=== PATIENT | female | born 1990 | race Two or more races ===

== ENCOUNTER → 2018-05-05 | Outpatient (CLI) | payer OTHER | LOC: OD 15:01 | PROVIDERS: ATTEND Family Medicine | DX: Z32.01 Encounter for pregnancy test, result positive (principal) | CPT/HCPCS: 36415; 84703 ==

== ENCOUNTER → 2018-11-29 | Outpatient (CLI) | payer OTHER | LOC: OD 16:49 | PROVIDERS: ATTEND Obstetrics & Gynecology | DX: Z11.3 Encounter for screening for infections with a predominantly sexual mode of transmission (principal) | CPT/HCPCS: 36415 ==

== ENCOUNTER 2018-12-28 13:20 | Outpatient (CLI) | payer OTHER ==
--- NOTE | 2018-12-28 14:20 | Non Stress Test Report ---
Non Stress Test Datetime Report Generated by CPN: 12/28/2018 14:19 DEMOGRAPHIC EGA NST: 40.3 INDICATION Indication for Study: Ordered by Provider MONITORING Monitor Explained: Monitor Explained; Test Explained; Patient Verbalized Understanding Time on Monitor: 12/28/2018 13:50 Time off Monitor: 12/28/2018 14:12 NST Duration: 22 NST INTERVENTIONS NST Interventions: None Physician Notified NST: J. Shields, CNM BABY A: [id number] BABY A Movement : Present Contraction Frequency : irregular FHR Baseline : 135 Accelerations : 15X15 Decelerations : None Variability : Moderate 6-25bpm NST Review: Meets Criteria for Reactive NST NST Review and Verified By : PAPA NARVAEZ RN NST Results: Reactive NST REPORT Report Trigger: Send Report
== END 2018-12-28 14:20 | disposition home or self-care (01) ==
LOC: LC 13:20
PROVIDERS: ATTEND Obstetrics & Gynecology
DX: O36.8330 Maternal care for abnormalities of the fetal heart rate or rhythm, third trimester, not applicable or unspecified (principal); Z3A.40 40 weeks gestation of pregnancy
CPT/HCPCS: 59025

== ENCOUNTER 2018-12-31 12:19 | Outpatient (CLI) | payer OTHER | END 2018-12-31 13:14 | disposition home or self-care (01) | LOC: LC 12:19 | PROVIDERS: ATTEND Student in an Organized Health Care Education/Training Program | PROC: 4A1HXCZ Monitoring of Products of Conception, Cardiac Rate, External Approach (ICD-10-PCS; principal; 2018-12-31) | DX: O48.0 Post-term pregnancy (principal); Z3A.40 40 weeks gestation of pregnancy | CPT/HCPCS: 59025 ==

== ENCOUNTER 2019-01-16 10:10 | Emergency (ER) | payer OTHER ==
[2019-01-16 10:14] VITALS: BP 93/62
--- NOTE | 2019-01-16 10:39 | ER Document Report ---
HPI - HPI Patient complains to provider of: breast pain Time Seen by Provider: 01/16/19 10:36 Onset: Other - 2 days Onset/Duration: Persistent Quality of pain: Achy Pain Level: 2 Context: Patient presents complaining of bilateral breast pain. Patient is 2 weeks and has been breast-feeding since delivery. Patient denies any fever. Patient is concerned she may have a blocked duct in the breast. Associated Symptoms: Other - nipple pain. denies: Fever, Nausea, Vomiting Exacerbated by: Movement Relieved by: Denies Similar symptoms previously: No Recently seen / treated by doctor: No - ROS ROS below otherwise negative: Yes Systems Reviewed and Negative: Yes All other systems reviewed and negative - CONSTITUTIONAL Constitutional: DENIES: Fever, Chills - NEURO Neurology: DENIES: Headache - GASTROINTESTINAL Gastrointestinal: DENIES: Abdominal Pain, Nausea, Patient vomiting - DERM Skin Color: Normal Skin Problems: None Past Medical History - General Information source: Patient - Social History Smoking Status: Never Smoker Frequency of alcohol use: None Drug Abuse: None Occupation: none Lives with: Family Family History: Reviewed & Not Pertinent Patient has suicidal ideation: No Patient has homicidal ideation: No - Medical History Medical History: Negative Surgical Hx: Negative Vertical Provider Document - CONSTITUTIONAL Agree With Documented VS: Yes Exam Limitations: No Limitations General Appearance: WD/WN, No Apparent Distress - INFECTION CONTROL TRAVEL OUTSIDE OF THE [place] IN LAST 30 DAYS: No - HEENT HEENT: Atraumatic, Normocephalic - NECK Neck: Normal Inspection, Supple - RESPIRATORY Respiratory: Breath Sounds Normal, No Respiratory Distress - CARDIOVASCULAR Cardiovascular: Regular Rate, Regular Rhythm - REPRODUCTIVE Notes: Patient with tenderness to bilateral nipples, no obvious erythema. Patient spontaneously lactating from right nipple. Bilateral breasts are firm to touch and tender with palpation. - BACK Back: Normal Inspection - MUSCULOSKELETAL/EXTREMETIES Musculoskeletal/Extremeties: JOSE POLLARD - NEURO Level of Consciousness: Awake, Alert, Appropriate Motor/Sensory: No Motor Deficit - DERM Integumentary: Warm, Dry Course - Re-evaluation Re-evalutation: 01/16/19 Suspect likely improper latch technique that is aggravating patient's pain symptoms involving the nipple. Discussed with patient possibility of developing infection, and therefore will place patient on antibiotics. OB nurses came down to discuss with patient proper techniques and will have patient follow-up with child upstairs so that they can ensure that she is doing it properly. - Vital Signs Vital signs: Temp Pulse Resp BP Pulse Ox 98.3 F 109 H 16 93/62 L 96 01/16/19 10:13 01/16/19 10:13 01/16/19 10:13 01/16/19 10:13 01/16/19 10:13 Discharge - Discharge Clinical Impression: Breast pain, Mastitis, disorder Condition: Stable Disposition: HOME, SELF-CARE Instructions: Anti-Inflammatory Medication ([facility]), Cephalexin ([facility]), Mastitis ([facility]) Additional Instructions: Return immediately for any new or worsening symptoms Followup with your primary care provider, call tomorrow to make a followup appointment Use techniques discussed for proper latch on. May use ointment such as lanolin [id number] to protect the nipples Prescriptions: Cephalexin Monohydrate [Keflex 500 mg Capsule] 500 mg PO Q6H 5 Days capsule Naproxen [Naprosyn 250 Nmg Tablet] 1 tab PO BID #14 tablet Referrals: LEILANI AYALA MD [ACTIVE STAFF] - Follow up as needed
== END 2019-01-16 10:40 | disposition home or self-care (01) ==
LOC: ER 10:10
DX: O91.23 Nonpurulent mastitis associated with lactation (principal)
CPT/HCPCS: 99283

== ENCOUNTER 2019-02-12 14:25 | Emergency (ER) | payer OTHER ==
[2019-02-12 14:32] VITALS: BP 115/74
--- NOTE | 2019-02-12 14:44 | ER Document Report ---
ED Medical Screen (RME) - General TRAVEL OUTSIDE OF THE [place] IN LAST 30 DAYS: No <GABRIELA DOBBS - Last Filed: 02/12/19 14:41> <KRISTINA SOTO - Last Filed: 02/12/19 17:26> - General Chief Complaint: Post Problem Stated Complaint: POSSIBLE DEPRESSION Time Seen by Provider: 02/12/19 14:38 Primary Care Provider: ISABELLE DANIEL MD [Primary Care Provider] - Follow up as needed Notes: 28-year-old woman presents to the emergency department with complaint of a stressful household and difficulties with her , and breast- feeding with frustration with her milk supply. She has a history of depression in the past, apparently last 11 years ago she took Zoloft during the period for anxiety and depression. She denies suicidal ideation or homicidal ideation, denies auditory or visual hallucinations. Patient is feeling pressured by her to breast-feed without the use of commercial formula. Her [id number] is also in the household and has had some supportive efforts however, patient feels that she is alone and having to hear the baby cried for to produce milk as needed. (KRISTINA SOTO) - HPI Notes: 02/12/19 14:41 Patient is a 28-year-old female with a history of depression with her first child who presents complaining of possible depression after giving (December) and being unable to sleep, excessive tearfulness, depressed mood, thoughts of being better off "," no support structure with her or other family members, restrictive lifestyle by her , and feeling like she is missing a part of herself. Patient states that she does have some auditory hallucination, but no visual. No other SI with plan or HI. No recent illness or fever. I have treated and performed a rapid initial assessment of this patient. A comprehensive ED assessment and evaluation of the patient, analysis of test results and completion of medical decision making process will be conducted by additional ED providers. PHYSICAL EXAMINATION: GENERAL: no acute distress. A&Ox4. Answers questions appropriately. Psych: Patient is very tearful and emotional with depressed mood. (GABRIELA DOBBS) - Related Data Allergies/Adverse Reactions: Sulfa (Sulfonamide Antibiotics) Allergy (Verified 02/12/19 14:36) Review of Systems <KRISTINA SOTO - Last Filed: 02/12/19 17:26> - Review of Systems Notes: Constitutional: Negative for fever. Cardiovascular: Negative for chest pain. Respiratory: Negative for shortness of breath. Gastrointestinal: Negative for vomiting Musculoskeletal: Negative for back pain. Skin: Negative for rash. Neurological: Negative for weakness or numbness. Psychiatric: + Anxiety, + depressed mood, no SI/no HI, no hallucinations. 10 point ROS negative except as marked above and in HPI. (KRISTINA SOTO) Physical Exam <KRISTINA SOTO - Last Filed: 02/12/19 17:26> - Vital signs Vitals: Temp Pulse Resp BP Pulse Ox 98.6 F 94 19 115/74 100 02/12/19 14:30 02/12/19 14:30 02/12/19 14:30 02/12/19 14:30 02/12/19 14:30 - Notes Notes: PHYSICAL EXAMINATION: GENERAL: Tearful, anxious, female in no acute distress. HEAD: Atraumatic, normocephalic. EYES: Pupils equal round and reactive to light, extraocular movements intact, sclera anicteric, conjunctiva are normal. ENT: nares patent, oropharynx clear without exudates. Moist mucous membranes. NECK: Normal range of motion, supple without lymphadenopathy LUNGS: Breath sounds clear to auscultation bilaterally and equal. No wheezes rales or rhonchi. HEART: Regular rate and rhythm without murmurs ABDOMEN: Soft, nontender, normoactive bowel sounds. No guarding, no rebound. No masses appreciated. EXTREMITIES: Normal range of motion, no pitting or edema. No cyanosis. NEUROLOGICAL: No focal neurological deficits. Moves all extremities spontaneously and on command. PSYCH: Anxious, depressed mood, voices frustration with her present situation, denies auditory or visual hallucination, adamant that she has no SI or HI SKIN: Warm, Dry, normal turgor, no rashes or lesions noted. (KRISTINA SOTO) Course - Laboratory Result Diagrams: 02/12/19 15:08 02/12/19 15:08 <KRISTINA SOTO - Last Filed: 02/12/19 17:26> - Re-evaluation Re-evalutation: 02/12/19 17:23 Patient was offered the opportunity to obtain behavioral health referral and possibly restarted on a mild anxiolytic antidepressant medicine, however she r efuses and has signed herself out AMA. (KRISTINA SOTO) - Vital Signs Vital signs: Temp Pulse Resp BP Pulse Ox 98.6 F 94 19 115/74 100 02/12/19 14:30 02/12/19 14:30 02/12/19 14:30 02/12/19 14:30 02/12/19 14:30 - Laboratory Laboratory results interpreted by me: 02/12/19 02/12/19 15:08 15:08 Chloride 108 H Urine Blood SMALL H Salicylates < 1.0 L Acetaminophen < 10 L Doctor's Discharge <GABRIELA DOBBS - Last Filed: 02/12/19 14:41> <KRISTINA SOTO - Last Filed: 02/12/19 17:26> - Discharge Clinical Impression: Anxiety Condition: Fair Disposition: AGAINST MEDICAL ADVICE Referrals: ISABELLE DANIEL MD [Primary Care Provider] - Follow up as needed
[2019-02-12 15:28] LABS: APPEARANCE,URINE CLEAR; BILIRUBIN,URINE NEGATIVE (NEGATIVE); COLOR,URINE STRAW; GLUCOSE, URINE NEGATIVE (NEGATIVE); KETONES,URINE NEGATIVE (NEGATIVE); LEUKOCYTE ESTERASE,URINE NEGATIVE (NEGATIVE); NITRITE,URINE NEGATIVE (NEGATIVE); PROTEIN,URINE NEGATIVE (NEGATIVE); URINE SPECIFIC GRAVITY 1.005; UROBILINOGEN,URINE NEGATIVE mg/dL (<2.0)
[2019-02-12 15:34] LABS: ABSOLUTE EOSINOPHILS # (AUTO) 0.2 10^3/uL (0.0-0.6); ABSOLUTE LYMPHOCYTES (AUTO) 1.3 10^3/uL (0.5-4.7); ABSOLUTE MONOCYTES (AUTO) 0.4 10^3/uL (0.1-1.4); ABSOLUTE NEUT (AUTO) 3.5 10^3/uL (1.7-8.2); BASOPHILS % (AUTO) 0.8 % (0-2); EOSINOPHILS % (AUTO) 4.1 % (0-6); HEMATOCRIT 36.3 % (36.0-47.0); HEMOGLOBIN 12.3 g/dL (12.0-15.5); LYMPHOCYTES % (AUTO) 24.4 % (13-45); MEAN CORPUSCULAR HEMOGLOBIN 29.4 pg (27.0-33.4); MEAN CORPUSCULAR HGB CONC 33.9 g/dL (32.0-36.0); MEAN CORPUSCULAR VOLUME 87 fl (80-97); MONOCYTES % (AUTO) 6.9 % (3-13); PLATELET COUNT 163 10^3/uL (150-450); RED BLOOD COUNT 4.18 10^6/uL (3.72-5.28); RED CELL DISTRIBUTION WIDTH 12.9 % (11.5-14.0); SEGMENTED NEUTROPHILS % (AUTO) 63.8 % (42-78); TOTAL CELLS COUNTED % (AUTO) 100 %; WHITE BLOOD COUNT 5.5 10^3/uL (4.0-10.5)
[2019-02-12 15:41] LABS: ALBUMIN 4.3 g/dL (3.5-5.0); ALKALINE PHOSPHATASE 50 U/L (38-126); ANION GAP 11 (5-19); ASPARTATE AMINO TRANSFERASE 34 U/L (14-36); BILIRUBIN,TOTAL 0.7 mg/dL (0.2-1.3); BLOOD UREA NITROGEN 12 mg/dL (7-20); CALCIUM 9.6 mg/dL (8.4-10.2); CARBON DIOXIDE 24 mmol/L (22-30); CHLORIDE 108 mmol/L (98-107); GLUCOSE 83 mg/dL (75-110); POTASSIUM 3.9 mmol/L (3.6-5.0); TOTAL PROTEIN 7.2 g/dL (6.3-8.2)
[2019-02-12 15:42] LABS: ACETAMINOPHEN < 10 ug/mL (10-30); ALCOHOL < 10 mg/dL (NONE DETECTED); SALICYLATE < 1.0 mg/dL (2.0-20.0)
[2019-02-12 16:35] LABS: URINE AMPHETAMINES SCREEN NEGATIVE; URINE BARBITURATES SCREEN NEGATIVE; URINE BENZODIAZEPINES SCREEN NEGATIVE; URINE COCAINE SCREEN NEGATIVE; URINE MARIJUANA (THC) SCREEN NEGATIVE; URINE METHADONE SCREEN NEGATIVE; URINE PHENCYCLIDINE SCREEN NEGATIVE
--- NOTE | 2019-02-12 17:18 | EKG REPORT ---
SEVERITY:- NORMAL ECG - SINUS RHYTHM : Confirmed by: Stiven Joseph MD 12-Feb-2019 17:17:19
--- NOTE | 2019-02-12 17:29 | PSYCHOLOGICAL NOTE ---
Psych Note - Psych Note Date seen by psych provider: 02/12/19 Time seen by psych provider: 16:00 Psych Note: Reason for consult: Depression Patient is a 28 year old female who presents to ED via POV with concerns related to depression. Patient states she was hoping to be seen while her 6 week old daughters stool sample is examined. Patient was informed that lab work could not be processed without her daughter present. Patient states she was not aware of that. Patient became emotional as she described her current emotional state. Patient denies suicidal and homicidal ideations. Patient reports a lack of sleep. Patient describes as controlling. Patient denies physical and emotional abuse. Patient states will only allow their daughter to be breastfed. Patient shares her milk fluxes. Patient states her told her she is being emotional and just needs to eat. Patient states it is against husbands spiritual beliefs for their daughter to receive formula, and to seek medical outside of a medical emergency. Patient states she and her mother in law snuck formula to the baby because I could not take her crying. Patient states her would never do anything to hurt her or the baby. Discussed with patient spiritual beliefs versus child neglect. Provided psychoeducation to patient regarding depression. Discussed psycopharmacotherapy and self-care. Discussed self-care as a necessity not a luxury. Discussed how to relay her need for support to her . Patient stated she would follow up with [facility]. Patient spoke of a prior inpatient psych hospitalization. Patient stated her mother was a psych nurse and she would reach out to her for support. Patient is alert and oriented to person, place, time and circumstance. Mood is normal with congruent affect as evidenced by smiling, laughing, and engaging with clinician, however patient was appropriately emotional as he spoke of her emotional distress. Patient denies suicidal and homicidal ideations. Delusions are absent and behavior is congruent with an intact reality based presentation (i.e.: organized and linear through processes). There is no observed behavior that suggests patient is responding to internal stimuli. Patient denies current auditory and visual hallucinations. Eye contact is appropriate. Conversational speech is within normal rate, tone, and prosody. Intellectual ability appears to be within average range. Attention and concentration are good. Insight, judgment and impulse control are currently poor. DSM Diagnosis: Per history, Depression Per history, Borderline Personality Disorder Per report, Depression Medication recommendations per [facility] contracted psychiatrist Dr. Dilan CAPMOS is as follows: Patient refused Impression/Plan: Patient left against advice of behavioral health team. Patient could not wait for discharge papers. CPS report was placed. Dr. Dennison was consulted on the care and management of this patient; attending physician is in agreement with recommendations and disposition.
== END 2019-02-12 17:06 | disposition left against medical advice (07) ==
LOC: ER 14:25
DX: O90.9 Complication of the puerperium, unspecified (principal); F41.9 Anxiety disorder, unspecified; R44.0 Auditory hallucinations; Z88.2 Allergy status to sulfonamides
CPT/HCPCS: 36415; 80053; 80307; 81001; 85025; 93005; 93010; 99285

== ENCOUNTER → 2019-06-08 | Outpatient (CLI) | payer OTHER ==
[2019-06-08 15:37] LABS: FREE T4 (FREE THYROXINE) 1.08 ng/dL (0.78-2.19)
[2019-06-08 15:51] LABS: THYROID STIMULATING HORMONE 2.58 uIU/mL (0.47-4.68)
== END ==
LOC: OD 13:17
PROVIDERS: ATTEND Psychiatry & Neurology Psychiatry
DX: F33.41 Major depressive disorder, recurrent, in partial remission (principal); Z79.899 Other long term (current) drug therapy
CPT/HCPCS: 36415; 84439; 84443

== ENCOUNTER → 2019-08-24 | Outpatient (CLI) | payer OTHER ==
--- NOTE | 2019-08-24 12:41 | RADIOLOGY REPORT (SQ) ---
EXAM DESCRIPTION: KNEE RIGHT 3 VIEWS IMAGES COMPLETED DATE/TIME: 08/24/2019 12:25 pm REASON FOR STUDY: PAIN IN RT KNEE M25.561 PAIN IN RIGHT KNEE COMPARISON: None. NUMBER OF VIEWS: Three views. TECHNIQUE: AP, lateral, and sunrise patella radiographic images acquired of the right knee. LIMITATIONS: None. FINDINGS: MINERALIZATION: Normal. BONES: No acute fracture or dislocation. No worrisome bone lesions. JOINT: No effusion. SOFT TISSUES: No soft tissue swelling. No radio-opaque foreign body. OTHER: No other significant finding. IMPRESSION: NEGATIVE STUDY OF THE RIGHT KNEE. NO RADIOGRAPHIC EVIDENCE OF ACUTE INJURY. TECHNICAL DOCUMENTATION: JOB ID: [id number] 2010 [employer]- All Rights Reserved Reading location - IP/workstation name: [email or web address]
== END ==
LOC: OD 12:09
PROVIDERS: ATTEND Family Medicine
DX: M25.561 Pain in right knee (principal)

== ENCOUNTER → 2019-09-03 | Outpatient (CLI) | payer OTHER ==
--- NOTE | 2019-09-03 16:10 | RADIOLOGY REPORT (SQ) ---
EXAM DESCRIPTION: MRI RT LOWER JOINT WITHOUT IMAGES COMPLETED DATE/TIME: 09/03/2019 1:45 pm REASON FOR STUDY: M25.561 PAIN IN RIGHT KNEE M25.561 PAIN IN RIGHT KNEE right knee popping, grindi ng, radiating pain. Pain for more than 1 year worse recently. No reported injury. COMPARISON: Right knee radiograph, 08/24/2019. TECHNIQUE: Rightknee images acquired and stored on PACS. Multiplanar images include fat sensitive s equences as T1, water sensitive sequences as FST2 or STIR, cartilage sensitive sequences as FSPD, and gradient echo sequences. LIMITATIONS: None. FINDINGS: JOINT AND BURSAE: No effusion. BONE CORTEX AND MARROW: No alteration of signal to suggest marrow replacement. No worrisome bone lesi ons. No occult fracture. ACL: Intact. No degeneration or ganglion cyst. PCL: Intact. MCL: Intact. No periligamentous edema or fluid. LCL: Intact. No periligamentous edema or fluid. MEDIAL MENISCUS: No tears. No abnormal signal. LATERAL MENISCUS: No tears. No abnormal signal. MEDIAL COMPARTMENT: Cartilage preserved. No bone bruises or reactive marrow edema. No osteophytes. LATERAL COMPARTMENT: Cartilage preserved. No bone bruises or reactive marrow edema. No osteophytes. PATELLA: No chondromalacia. No subchondral cysts. Medial and lateral retinacula intact. EXTENSOR MECHANISM: Intact. Quadriceps and patella tendons normal. SOFT TISSUES: Adjacent muscles and subcutaneous tissues normal. Normal flow void in popliteal artery and vein. OTHER: No other significant finding. IMPRESSION: NORMAL MRI OF THE KNEE. TECHNICAL DOCUMENTATION: JOB ID: [id number] [employer]- All Rights Reserved Reading location - IP/workstation name: [email or web address]
== END ==
LOC: RAD 14:00
PROVIDERS: ATTEND Family Medicine
DX: M25.561 Pain in right knee (principal)

== ENCOUNTER → 2019-11-29 | Outpatient (CLI) | payer OTHER ==
--- NOTE | 2019-11-29 14:58 | RADIOLOGY REPORT (SQ) ---
EXAM DESCRIPTION: LUMBAR SPINE 2 VIEWS IMAGES COMPLETED DATE/TIME: 11/29/2019 2:24 pm REASON FOR STUDY: LOW BACK PAIN AT MULTIPLE SITES Z78.9 OTHER SPECIFIED HEALTH STATUS Z01.84 ENCOU NTER FOR ANTIBODY RESPONSE EXAMINATION COMPARISON: None. NUMBER OF VIEWS: Two views. TECHNIQUE: AP and lateral radiographic images acquired of the lumbar spine. LIMITATIONS: None. FINDINGS: MINERALIZATION: Normal. SEGMENTATION: Normal. No transitional anatomy. ALIGNMENT: Normal. VERTEBRAE: Maintained height. No fracture or worrisome bone lesion. DISCS: Preserved height. No significant osteophytes or end plate irregularity. POSTERIOR ELEMENTS: Pedicles and facets are intact. No pars defect or posterior arch defects. HARDWARE: None in the spine. PARASPINAL SOFT TISSUES: Normal. PELVIS: Intact as visualized. No fractures or worrisome bone lesions. SI joints intact. OTHER: No other significant finding. IMPRESSION: NORMAL 2 VIEW LUMBAR SPINE. TECHNICAL DOCUMENTATION: JOB ID: [id number] 2010 [employer]- All Rights Reserved Reading location - IP/workstation name: [email or web address]
== END ==
LOC: OD 13:35
PROVIDERS: ATTEND Family Medicine
DX: Z01.84 Encounter for antibody response examination (principal); Z78.9 Other specified health status; Z11.1 Encounter for screening for respiratory tuberculosis; M54.5 Low back pain
CPT/HCPCS: 36415; 72100; 86480; 86706; 86735; 86762; 86765; 86787; 87340